=== PATIENT | female | born 1995 | race Two or more races ===

== ENCOUNTER 2025-01-23 11:25 | Day surgery (SDC) | payer MEDICAID, SELFPAY ==
--- NOTE | 2025-01-20 06:58 | EKG_ITS ---
[facility] Test Date: 2025-01-20 Pat Name: AMAURY QUICK Department: Room: - Gender: Female [employer] Officer: [facility] : 1995 Requested By: Julio Mcclain Order Number: [id number] Reading MD: Julio Mcclain Measurements Intervals [facility] Rate: 64 P: 31 NV: 157 QRS: 53 QRSD: 85 T: 59 QT: 418 QTc: 432 Interpretive Statements SINUS RHYTHM No previous ECG available for comparison /store/S0/[id number]
[2025-01-20 10:21] VITALS: BMI 25.0
[2025-01-20 10:56] LABS: Collection Type, Urine Clean Catch
[2025-01-20 12:09] LABS: Basophils # (Auto) 0.1 Thou/mm3 (0.0-0.2); Basophils % (Auto) 1 % (0-2.5); Eosinophils # (Auto) 0.3 Thou/mm3 (0.0-0.5); Eosinophils % (Auto) 4 % (0-10); Hematocrit 40.2 % (36.0-46.0); Hemoglobin 12.9 g/dL (12.0-16.0); Immature Granulocytes Auto 0.01 Thou/mm3 (0.00-0.00); Lymphocytes # (Auto) 1.5 Thou/mm3 (1.0-4.8); Lymphocytes % (Auto) 24 % (10-50); Mean Corpuscular HGB Conc 32.1 g/dl (31.0-37.0); Mean Corpuscular Hemoglobin 25.7 pg (25.0-35.0); Mean Corpuscular Volume 80 fL (80-100); Monocytes # (Auto) 0.4 Thou/mm3 (0.0-0.8); Monocytes % (Auto) 6 % (0-12); Neutrophils # (Auto) 4.0 Thou/mm3 (1.8-7.7); Neutrophils % (Auto) 65 % (37-80); Nucleated Red Blood Cell # 0.00 Thou/mm3 (0.00-0.00); Nucleated Red Blood Cell % 0 /100 WBC (0); Platelet Count 196 Thou/mm3 (140-440); RDW Standard Deviation 42.0 fL (36.4-46.3); Red Blood Count 5.01 Miln/mm3 (4.00-5.20); White Blood Count 6.1 Thou/mm3 (3.6-11.0)
[2025-01-20 12:15] LABS: Partial Thromboplastin Time 25.6 Seconds (22.0-36.0)
[2025-01-20 12:29] LABS: Alanine Aminotransferase 10 U/L (10-49); Albumin, Serum 4.7 gm/dL (3.5-5.0); Albumin/Globulin Ratio 2.1 (1.2-2.2); Alkaline Phosphatase 57 U/L (46-116); Anion Gap 9 (7-16); Aspartate Amino Transferase 22 U/L (0-34); BUN/Creatinine Ratio 11 Ratio (12-20); Bilirubin,Total 0.5 mg/dL (0.3-1.2); Blood Urea Nitrogen 8 mg/dL (9-23); Calcium 9.4 mg/dL (8.3-10.6); Calcium (Corrected) 9.4 mg/dL (8.5-10.1); Carbon Dioxide 25.8 mMol/L (20.0-31.0); Chloride 106 mMol/L (98-107); Creatinine (Component) 0.7 mg/dL (0.6-1.3); Estimated Creatinine Clearance 105.7 mL/min (>60); Globulin 2.2 gm/dL (2.3-3.5); Glucose 84 mg/dL (74-106); Osmolality,Calculated 278 (275-295); Potassium 3.3 mMol/L (3.4-5.1); Sodium 141 mMol/L (136-145); Total Protein 6.9 gm/dL (5.7-8.2); eGFR > 60 See Note
[2025-01-20 12:30] LABS: Bilirubin,Urine Negative (Negative); Blood,Urine Trace (Negative); Clarity,Urine Clear (Clear/Hazy); Color,Urine Lt-Yellow (Lt Yel-Yel); Glucose, Urine Negative (Negative); Ketones,Urine Negative (Negative); Leukocyte Esterase,Urine Negative (Negative); Nitrite,Urine Negative (Negative); PH,Urine 6.0 (5.0-7.0); Protein,Urine Negative (Neg - Trace); RBC,Urine 8 /hpf (0-3); Specific Gravity,Urine 1.022 (1.001-1.035); Squamous Epithelial Cell,Urine 1 /hpf (0-5); Urobilinogen,Urine Negative mg/dL (0.0-1.0); WBC,Urine 2 /hpf (0-5)
[2025-01-20 12:33] LABS: HCG Qualitative,Urine Negative
[2025-01-23] VITALS (9 sets, daily range): BP systolic 91–113; BP diastolic 49–67; PULSE 54–69; RESP 12–20; TEMP 36.1–36.8; O2SAT 95–100; BMI 25.0
[2025-01-23] MEDS: RINGERS LACTATED 1000 ML 1,000 ML 60 ML IV (12:08)
--- NOTE | 2025-01-23 14:48 | SUR.PHASEI ---
1448: Pt. arrived with oral airway in place, vitals stable, breathing unlabored, no signs of distress, dressing to rectum has scant amount of blood, report received from Zak FINLEY and Yeimy WOMACK.
--- NOTE | 2025-01-23 14:59 | PD.SUROPNT ---
Date of Procedure 01/23/25 Pre Op Diagnosis Internal/external hemorrhoids and anal fissure Post Op Diagnosis Same. Procedure Internal and external hemorrhoidectomy and fissurectomy and lateral sphincterotomy on 01/23/2025 Findings This patient has internal/external hemorrhoids located at 3:00 9:00 and 1 o'clock position. There is a posterior fissure in ano and anal sphincter is somewhat hypertrophic Procedure Description The patient was interviewed in the preop area. Patient understanding of surgery was discussed and is ascertained that patient knows what procedure we are going to do. The risk benefits and alternatives of hemorrhoidectomy surgery were discussed in detail with the patient and informed consent is obtained. The risk includes risk of bleeding infection urinary retention possible long-term recurrence of the hemorrhoids and anesthesia related complications. The patient has done bowel prep as prescribed. Patient was taken to the operating room and laid supine on the operating room table. General anesthesia was administered satisfactorily. Patient is positioned in the lithotomy position on yellowfins. Perianal region is prepped and draped in usual manner. A timeout procedure was carried out. A dilute lidocaine with epinephrine is injected and pararectal and internal pudendal blocks were achieved bilaterally. Examination is carried out under anesthesia and shows that the patient has extensive hemorrhoids. The hemorrhoid at 3 o'clock position, 9 o'clock position and 1 o'clock position were removed. All hemorrhoids were removed by similar technique. For each hemorrhoid pedicles were ligated with 3-0 Vicryl sutures. After that a V-shaped incision was made around the external hemorrhoid and was dissected from the sphincter. The internal sphincter was identified and was protected. The hemorrhoid was removed as a specimen. The fissure was dissected and scar tissue was removed. After all this hemostasis is achieved. Significant amount of mucosa and the anal skin were left between the excisions in order to prevent the thompson deformity. The hemorrhoidal incisions were kept open for secondary healing. Dilute lidocaine solution is infiltrated again. Lidocaine with Silverdene cream is applied. A cigarette drain fashioned from a 4 x 4 gauze is placed in the anal canal. Sterile dressing is applied. Patient tolerated the procedure very well. Anesthesia GETA Drains None. Implants None. Pathology / specimen Other (Hemorrhoids at 3:00 9:00 and 1 o'clock position) Estimated Blood Loss 5 Condition Stable Disposition PACU Surgeon Julio Mcclain MD Surgical Staff Operation Date: 01/23/25 13:35 Case Staff Anesthesiologist: Zak Giraldo RN drop wire aligner Amber certified surgical first assistant Cortney certified surgical first assistant
--- NOTE | 2025-01-23 16:15 | SUR.PHASEII ---
1615: Pt. AAOx4, vitals stable, breathing unlabored, no complaint of pain or nausea, dressing to rectum had scant amount of blood, pt. tolerated sips of juice well, pt. ambulated to wheelchair with steady gait and no assist, no complications. Gave discharge instructions to the pt. and her ride using a translator and interpreter, both verbalized understanding and had no further questions. Pt. left with all personal belongings.
== END 2025-01-23 16:15 | disposition home or self-care (01) ==
LOC: S2EX 17:15
PROVIDERS: Anesthesiology; PCP Obstetrics & Gynecology; Referring Provider Specialist; Visit Provider Specialist
PROC: (CPT 46945; principal; 2025-01-23 13:20)
DX: K64.2 Third degree hemorrhoids (principal); K60.2 Anal fissure, unspecified; Z01.810 Encounter for preprocedural cardiovascular examination
CPT/HCPCS: 46945; 36415; 80053; 81001; 81025; 85025; 85730; 93005; A4217; A4649; J0131; J0694; J1100; J1885; J2405; J2704; J3010; J3490; J7120; J7999; A9270